=== PATIENT | female | born 1935 | race Caucasian/White ===

== ENCOUNTER 2017-10-14 07:35 | Inpatient (IN) | payer OTHER ==
[~2017-10-14] VITALS: Ht 160 cm; Wt 59.0 kg
[~2017-10-14 07:35] MED LIST: EFFEXOR XR75 MG PO; NORCO 5-325 TA1 EACH PO; PRAVASTATIN SOD10 MG PO
[2017-10-14 08:01] VITALS: BP 117/81
[2017-10-14] MEDS ORDERED: NEURONTIN 300300 M1 PO (08:02)
[2017-10-14 08:30] LABS: INFLUENZA A ANTIGEN None Detected (None Detect); INFLUENZA B ANTIGEN None Detected (None Detect)
[2017-10-14 08:46] LABS: HEMATOCRIT 43.6 % (37.0-47.0); HEMOGLOBIN 14.8 gm/dL (12.0-15.0); MCH 31.2 pg (26.0-34.0); MCV 91.7 fL (80.0-100.0); MPV 7.5 fl. (7.2-11.1); NUCLEATED RBCS 0 /100WBC; PLATELET COUNT* 340 thou/uL (150-400); RBC 4.76 mil/uL (4.20-5.00); RDW-CV 15.5 % (10.5-14.5); WBC 13.4 thou/uL (4.0-11.0)
[2017-10-14 08:58] LABS: ANION GAP 7 mmol/L (7-16); BUN 14 mg/dL (7-18); CALCIUM 9.5 mg/dL (8.5-10.1); CHLORIDE 101 mmol/L (98-107); CO2 31 mmol/L (21-32); CREATININE 0.9 mg/dL (0.6-1.3); GLUCOSE 115 mg/dL (70-99); POTASSIUM 4.1 mmol/L (3.5-5.1); SODIUM 139 mmol/L (136-145)
[2017-10-14 09:07] LABS: ALBUMIN 3.7 g/dL (3.4-5.0); ALKALINE PHOSPHATASE 90 U/L (46-116); SGOT 25 U/L (15-37); SGPT 51 U/L (30-65); TOTAL BILIRUBIN 0.4 mg/dL (<0.1-1.0); TOTAL PROTEIN 7.4 g/dL (6.4-8.2); TROPONIN-I LEVEL <0.06 ng/mL (<0.06)
[2017-10-14 09:09] LABS: BE 5.1 mmol/L (-2 to +3); PCO2 44.8 mmHg (35.0-45.0); PO2 87.8 mmHg (75.0-100.0); pH 7.443 (7.340-7.450)
[2017-10-14 09:11] LABS: ABSOLUTE EOSINOPHILS 0.1 thou/uL (0.0-0.7); ABSOLUTE LYMPHOCYTES 0.7 thou/uL (0.8-5.3); ABSOLUTE MONOCYTES 1.2 thou/uL (0.0-1.2); ABSOLUTE NEUTROPHILS 11.4 thou/uL (1.6-8.1); ATYPICAL LYMPHS 2 %; PLATELET ESTIMATE ADEQUATE
[2017-10-14 12:56] VITALS: BP 91/56
[2017-10-14 14:00] VITALS: BP 148/69
[2017-10-14] MEDS ORDERED: BUSPIRONE HCL10 MG PO (14:59)
--- NOTE | 2017-10-14 15:49 | NUR ---
PATIENT ADMITTED TO ROOM 311 VIA CART FROM ER AT 1315. PATIENT'S ASSESSMENT, HISTORY, AND VITALS CHARTED. PATIENT WITH HARSH NON PRODUCTIVE COUGH. SPUTUM SAMPLE SENT IN ER. MRSA NASAL SWAB AND URINE SENT PER ORDERS. PATIENT CONTINUES ON O2 AT 3L/NC. ORIENTED TO ROOM AND ENVIRONMENT. FALL PRECAUTIONS IN PLACE. CALL LIGHT WITHIN REACH. WILL CONTINUE WITH PLAN OF CARE.
--- NOTE | 2017-10-14 18:03 | NUR ---
PATIENT HAS BEEN A/O X 4 THIS SHIFT. HAS DENIED PAIN. HAS BEEN ON 3L/NC. PATIENT HAD COUGHING SPELL THIS AFTERNOON, HARSH NONPRODUCTIVE. SPUTUM SAMPLE SENT IN ER, MRSA AND URINE SENT ORDERED. CONTINUES ON IV FLUIDS. UP TO BSC WITH ASSIST DUE TO SHORTNESS OF AIR WITH EXERTION. PATIENT REFUSED SCDS. REMAINS ON FALL PRECAUTIONS. CALL LIGHT WITHIN REACH. WILL CONTINUE WITH PLAN OF CARE.
[2017-10-14 23:49] VITALS: BP 141/64
[2017-10-15 03:35] VITALS: BP 142/77
[2017-10-15 04:02] LABS: HEMOGLOBIN 13.5 gm/dL (12.0-15.0); MCH 30.3 pg (26.0-34.0); MCHC 32.2 g/dL (28.0-37.0); MCV 94.2 fL (80.0-100.0); MPV 7.6 fl. (7.2-11.1); RBC 4.45 mil/uL (4.20-5.00); RDW-CV 15.7 % (10.5-14.5); WBC 15.5 thou/uL (4.0-11.0)
[2017-10-15 04:21] LABS: CREATININE 0.9 mg/dL (0.6-1.3); MAGNESIUM 2.2 mg/dL (1.8-2.4); POTASSIUM 3.9 mmol/L (3.5-5.1)
--- NOTE | 2017-10-15 06:55 | NUR ---
PT SLEPT WELL AFTER RECEIVING PRN COUGH MED ORDERED LAST NIGHT. OCC EPISODE OF CHOKEY HARSH COUGH HEARD OVERNIGHT. O2 3L NC. UP WITH ASSIST TO BSC TO VOID OVERNIGHT. RAC IVF INFUSING PER PUMP, SOLUMEDROL GIVEN ORDERED. RT TX GIVEN ORDERED. AM LABS DRAWN. TYLENOL GIVEN FOR HEADACHE WITH GOOD RESULT. MRSA NEGATIVE. AO, ABLE TO USE CALL LITE AND MAKE NEEDS KNOWN. BED ALARM ON FOR SAFETY OVERNIGHT.
[2017-10-15 08:30] VITALS: BP 124/59
[2017-10-15 12:00] VITALS: BP 130/63
--- NOTE | 2017-10-15 15:32 | NUR ---
SW met with pt to complete initial assessment, introduce self, and SW role. Pt alert and oriented. Pt lives alone and was independent with ADLs and mobility. Pt did not have any DME and no history of HH. Pt says she has 2 dtrs who are out of area but she does have a niece who lives in the area. Pt also has good support in friends. Pt does not anticipate any dc needs. SW to continue to follow to assist with safe dc planning.
[2017-10-15 16:00] VITALS: BP 129/52
--- NOTE | 2017-10-15 17:03 | NUR ---
PATIENT HAS BEEN A/O X 4 THIS SHIFT. GIVEN TYLENOL FOR LOW GRADE TEMP PER PATIENT REQUEST. UP TO BSC, VOIDING WITHOUT DIFFICULTY. PATIENT'S IV SALINE LOCKED. GIVEN COUGH SYRUP THIS SHIFT PER REQUEST. CONTINUES ON BREATHING TREATMENTS. PATIENT TOLERATING DIET. HOURLY ROUNDING COMPLETED. CALL LIGHT WITHIN REACH. WILL CONTINUE WITH PLAN OF CARE.
[2017-10-16 00:14] VITALS: BP 158/87
[2017-10-16 00:21] VITALS: BP 127/66
[2017-10-16 03:52] LABS: HEMATOCRIT 36.4 % (37.0-47.0); HEMOGLOBIN 11.9 gm/dL (12.0-15.0); MCH 30.9 pg (26.0-34.0); MCHC 32.6 g/dL (28.0-37.0); MCV 94.6 fL (80.0-100.0); MPV 7.8 fl. (7.2-11.1); RBC 3.85 mil/uL (4.20-5.00); RDW-CV 16.2 % (10.5-14.5); WBC 15.9 thou/uL (4.0-11.0)
[2017-10-16 04:21] LABS: CALCIUM 9.3 mg/dL (8.5-10.1); CREATININE 0.8 mg/dL (0.6-1.3); MAGNESIUM 1.9 mg/dL (1.8-2.4)
[2017-10-16 04:55] LABS: POTASSIUM 5.4 mmol/L (3.5-5.1)
--- NOTE | 2017-10-16 06:01 | NUR ---
PT SLEPT FAIRLY WELL AFTER RECEIVING COUGH MED AT START OF SHIFT FOR HARSH CHOKEY COUGHING SPELL WITH GOOD RELIEF. O2 2L. R AC SL, SOLUMEDROL GIVEN ORDERED. AM LABS DRAWN. TO HAVE CXR TODAY. UP WITH SBA TO BR WITH O2 EXT TUBING, HE, FATIGUE. AOX4, ABLE TO USE CALL LITE AND MAKE NEEDS KNOWN. RECEIVED DULCOLAX TABS OVERNIGHT WITHOUT RESULTS AT THIS TIME.
[2017-10-16 07:45] VITALS: BP 142/75
[2017-10-16 16:52] VITALS: BP 122/62
--- NOTE | 2017-10-16 17:43 | NUR ---
PATIENT HAS BEEN A/O X 4 THIS SHIFT. HAS DENIED PAIN. CONTINUES ON O2 AT 2L/NC. PATIENT UP TO BATHROOM THIS SHIFT WITH EXTENSION O2. PATIENT AMBULATING IN ROOM. PATIENT AMBULATED FROM ROOM TO SHOWER THIS SHIFT. STILL HAS HARSH NONPRODUCTIVE COUGH, GIVEN COUGH SYRUP X 1 THIS AFTERNOON. UPDATED PATIENT'S DAUGHTER ON PATIENT'S PROGRESS. PER PATIENT'S DAUGHTER PATIENT WILL BE STAYING WITH DAUGHTER UPON DISCHARGE. PATIENT'S DAUGHTER UNABLE TO ELECTRICAL TRYOUT PERSON PATIENT UNTIL SATURDAY THOUGH. PATIENT STATING FEELING IMPROVED. HOURLY ROUNDING COMPLETED. CALL LIGHT WITHIN REACH. WILL CONTINUE WITH PLAN OF CARE.
[2017-10-16 19:31] VITALS: BP 168/77
--- NOTE | 2017-10-17 06:10 | NUR ---
ASSESSMENT COMPLETE. PT SLEPT THROUGH THE NIGHT WITHOUT ANY CONCERNS. PT DENIES PAIN AND N/V. PT IS ON 1L PER NC WITH [place] SATS. PT STILL HAS NONPRODUCTIVE, DRY COUGH, PRN COUGH MEDICATION GIVEN ONCE NEEDED. PT IS UP AD KERRY TO THE BATHROOM WITH STEADY GAIT. PT IS SLEEPING AT THIS TIME. SEE ASSESSMENT AND VITALS FOR OTHER DETAILS. CALL LIGHT WITHIN REACH, WILL CONTINUE PLAN OF CARE
[2017-10-17 09:00] VITALS: BP 143/65
[2017-10-17] MEDS ORDERED: CEFDINIR300 MG PO (09:21)
[2017-10-17] MEDS ORDERED: MUCINEX600 MG PO (09:21)
[2017-10-17] MEDS ORDERED: AZITHROMYCIN 2250 MG PO (09:21)
[2017-10-17] MEDS ORDERED: PREDNISONE 10 M10 MG PO (09:21)
--- NOTE | 2017-10-17 10:05 | NUR ---
ASSUMED CARES OF PT AT 0700. PT IN BED, BED IN LOW AND LOCKED POSITION. FALL PRECAUTIONS IN PLACE. PT A&O X4, HR TACHYCARDIC PER AUSCULTATION, LUNGS MILD WHEEZES ON EXHALATION, O2 1L NC 90%, OCCASIONAL NON PRODUCTIVE COUGH. SKIN INTACT, PERRLA, PT UP INDEPENDENTLY, STEADY GAIT. PT DENIES PAIN AT THIS TIME. GOOD APPETITE, ATE 90% BREAKFAST. PT POSSIBLY TO D/C TODAY. WILL CONTINUE TO MONITOR PT STATUS AND PROGRESS. PT PRESENTLY PROGRESSING TOWARDS GOAL.
[2017-10-17 13:55] VITALS: BP 143/65
--- NOTE | 2017-10-17 13:56 | NUR ---
Pt to dc home alone today in need of oxygen. SW arranged oxygen through [facility], BRITTANI spoke with Carol who accepted referral and to deliver to pt room prior to pt dc. No other needs expressed.
[2017-10-17 14:32] VITALS: BP 143/65
[2017-10-17 15:47] VITALS: BP 143/65
--- NOTE | 2017-10-17 16:10 | NUR ---
PT CLEARED FOR DISCHARGE HOME. IV REMOVED. PT ON 1L O2, PT REMAINS STABLE. PT UP INDEPENDENTLY. PERSONAL ITEMS PACKED. PT EDUCATED ON DISCHARGE MEDS AND ORDERS. PT SIGNED ALL DISCHARGE FORMS. EDUCATED ON STROKE SIGNS/SYMPTOMS, RISKS. PT ESCORTED VIA W/C BY NURSING STAFF WITH FRIEND TO CAR TO GO HOME. PRESCRIPTIONS AND CARE NOTES GIVEN. DISCHARGE SUCCESSFUL. SEAT BELT IN CAR SECURED ON PT. DISCHARGE COMPLETED AT 1542.
== END 2017-10-17 15:42 | disposition home or self-care (01) | DRG 871 ==
LOC: M.ERS 07:35 → M.3W 09:48 → M.TBA-ER 09:48 → M.3W 12:58
PROVIDERS: Personal Emergency Response Attendant; ADMIT Internal Medicine
DX: A41.9 Sepsis, unspecified organism (principal); J96.01 Acute respiratory failure with hypoxia; J15.9 Unspecified bacterial pneumonia; J44.1 Chronic obstructive pulmonary disease with (acute) exacerbation; J44.0 Chronic obstructive pulmonary disease with (acute) lower respiratory infection; F41.9 Anxiety disorder, unspecified; Z85.3 Personal history of malignant neoplasm of breast; Z87.891 Personal history of nicotine dependence

== ENCOUNTER 2017-12-05 09:15 | Emergency (ER) | payer OTHER ==
[~2017-12-05] VITALS: Ht 160 cm; Wt 61.2 kg
[~2017-12-05 09:15] MED LIST changes: +AZITHROMYCIN 2250 MG PO; +BUSPIRONE HCL10 MG PO; +CEFDINIR300 MG PO; +MUCINEX600 MG PO; +NEURONTIN 300300 M1 PO; +PREDNISONE 10 M10 MG PO
[2017-12-05 10:08] VITALS: BP 137/53
== END 2017-12-05 10:21 | disposition home or self-care (01) ==
LOC: M.ERS 09:15
DX: S51.811A Laceration without foreign body of right forearm, initial encounter (principal); F41.9 Anxiety disorder, unspecified; J44.9 Chronic obstructive pulmonary disease, unspecified; Z85.3 Personal history of malignant neoplasm of breast; Z90.49 Acquired absence of other specified parts of digestive tract; W01.198A Fall on same level from slipping, tripping and stumbling with subsequent striking against other object, initial encounter; Y93.89 Activity, other specified; Y92.091 Bathroom in other non-institutional residence as the place of occurrence of the external cause; Y99.8 Other external cause status

== ENCOUNTER 2021-07-17 10:26 | Inpatient (IN) | payer MEDICARE ==
[~2021-07-17] VITALS: Ht 160 cm; Wt 65.8 kg
[2021-07-17 10:33] VITALS: BP 138/78
[2021-07-17] MEDS ORDERED: TRELEGY ELLIPT1 EACH (10:59)
[2021-07-17] MEDS ORDERED: OMEPRAZOLE 20 M20 M1 PO (10:59)
[2021-07-17] MEDS ORDERED: PROAIR HFA8.5 GM INH (10:59)
[2021-07-17] MEDS ORDERED: OXYBUTYNIN 5 MG5 M2 PO (11:00)
[2021-07-17] MEDS ORDERED: VIACTIV 650 MG1 EACH PO (11:00)
[2021-07-17] MEDS ORDERED: MELATONIN10 M3 PO (11:00)
[2021-07-17] MEDS ORDERED: CENTRUM SILVER1 EAC5 PO (11:00)
[2021-07-17 11:22] LABS: ABSOLUTE BASOPHILS 0.1 thou/uL (0.0-0.2); ABSOLUTE EOSINOPHILS 0.3 thou/uL (0.0-0.7); ABSOLUTE LYMPHOCYTES 1.2 thou/uL (0.8-5.3); ABSOLUTE MONOCYTES 2.2 thou/uL (0.0-1.2); ABSOLUTE NEUTROPHILS 10.5 thou/uL (1.6-8.1); BASOPHILS 0.7 %; EOSINOPHILS 1.9 %; HEMATOCRIT 40.4 % (37.0-47.0); HEMOGLOBIN 13.6 gm/dL (12.0-15.0); LYMPHOCYTES 8.6 %; MCH 32.1 pg (26.0-34.0); MCHC 33.7 g/dL (28.0-37.0); MCV 95.4 fL (80.0-100.0); MONOCYTES 15.4 %; MPV 8.1 fl. (7.2-11.1); NUCLEATED RBCS 0 /100WBC; PLATELET COUNT* 278 thou/uL (150-400); POLYS 73.4 %; RBC 4.23 mil/uL (4.20-5.00); WBC 14.3 thou/uL (4.0-11.0)
[2021-07-17 11:27] LABS: INFLUENZA A ANTIGEN Negative (Negative); INFLUENZA B ANTIGEN Negative (Negative)
[2021-07-17 11:32] LABS: CALCIUM 9.6 mg/dL (8.5-10.1); CREATININE 0.8 mg/dL (0.6-1.3); POTASSIUM 4.5 mmol/L (3.5-5.1)
[2021-07-17 11:42] LABS: ALBUMIN 3.8 g/dL (3.4-5.0); TOTAL BILIRUBIN 0.5 mg/dL (<0.1-1.0); TOTAL PROTEIN 7.9 g/dL (6.4-8.2)
[2021-07-17 12:30] LABS: BE -3.1 mmol/L (-2 to +3); PCO2 VENOUS 63.5 mmHg (41.0-51.0); PO2 VENOUS 31.7 mmHg (35.0-45.0)
--- NOTE | 2021-07-17 12:37 | EKG ---
[place] [address] ELECTROCARDIOGRAM REPORT Name: JEFFREY BLACKWELL Room: [place] [address] ADM IN [facility]#: [id number] Admission: 07/17/21 Attend Phys: Arik Velasco Discharge: Date of : 39 Date of Service: 07/17/21 1103 Report #: [id number] THIS REPORT FOR: //name// [facility] ED Test Date: 2021-07-17 Test Time: 11:03:04 Pat Name: JEFFREY BLACKWELL Department: Room: [facility] Gender: F Rooms Director: ADRIANA : [id number] Requested By: Winnie Recinos Order Number: [id number] MD: Steve Gagnon Measurements Intervals [place] Rate: 90 P: 62 [place]: 154 QRS: 11 QRSD: 99 T: 47 QT: 360 QTc: 441 Interpretive Statements Sinus rhythm No previous ECG available for comparison Electronically Signed On 07-17-2021 12:37:13 SOFTWARE QUALITY ASSURANCE ANALYST by Steve Gagnon [email or web address] <ELECTRONICALLY SIGNED> By: Steve Gagnon MD, [facility] 07/17/21 1237 1103 1103 Steve Gagnon MD, [facility] /EPI
--- NOTE | 2021-07-17 17:21 | NUR ---
PT GIVEN DINNER.
[2021-07-17 17:53] VITALS: BP 126/72
[2021-07-17 18:30] VITALS: BP 148/66
--- NOTE | 2021-07-17 20:01 | NUR ---
PT TRANSFERRED FROM AT APPROX 1810. PT IS PLEASANTLY A&OX4. PT IS UP AD KERRY. PT IS ON 2L OF O2 PER NC. MEDICATIONS RECONCILED. PT VERBALIZES UNDERSTANDING OF SAFETY MEASURES.ORIENTED PT TO ROOM. REPORT GIVEN TO ONCOMING NURSE.
[2021-07-17 20:29] VITALS: BP 131/62
[2021-07-18 01:11] VITALS: BP 138/60
[2021-07-18 04:49] VITALS: BP 126/68
--- NOTE | 2021-07-18 06:50 | NUR ---
PT IS ABLE TO COMMUNICATE HER NEEDS TO STAFF EFFECTIVELY. SHE HAS DENIED THE NEED FOR PAIN MEDICATION UP TO THIS TIME. PT IS UP WITH SBA; BED ALARM ON SHE HAS HAD RECENT FALLS AT HOME.
[2021-07-18 07:50] VITALS: BP 118/46
--- NOTE | 2021-07-18 10:34 | NUR ---
CM ASSESSMENT: PT A&O, AND INDEPENDENT WITH ADL'S. PT RESIDES AT HOME ALONE. PT USES 0 DME. PT HAS 0 HX OF HH OR SNF. PT INFORMS THAT SHE IS CURRENT WITH OUTPATIENT PT/OT AT [facility]. CM WILL REMAIN AVAILABLE TO ASSIST AND FOLLOW NEEDED.
[2021-07-18 12:00] VITALS: BP 120/54
[2021-07-18 16:00] VITALS: BP 133/53
--- NOTE | 2021-07-18 18:30 | NUR ---
PT REMAINS ON 2L NC-ATTEMPTED TO TITRATE TO ROOM AIR AND SAT DROPPED IN THE 80'S-PT PLACED BACK ON 2L NC SAT LOW 90'S. TRACING ST ON THE SENIOR TREASURY CONSULTANT-RATE IN THE 110'S. PT AMBULATED IN HALLWAY WITH NURSING THIS AFTERNOON-TOLERATED WELL. AM ASSESSMENT CHARTED. MEDS PER OCT. CALL LIGHT WITHIN REACH. HOURLY ROUNDING OBSERVED. WILL CONTINUE PLAN OF CARE.
[2021-07-18 20:09] VITALS: BP 154/64
[2021-07-19 00:20] VITALS: BP 144/60
[2021-07-19 05:21] LABS: HEMATOCRIT 35.6 % (37.0-47.0); HEMOGLOBIN 11.8 gm/dL (12.0-15.0); MCH 31.8 pg (26.0-34.0); MCHC 33.2 g/dL (28.0-37.0); MCV 95.6 fL (80.0-100.0); MPV 8.1 fl. (7.2-11.1); NUCLEATED RBCS 0 /100WBC; PLATELET COUNT* 261 thou/uL (150-400); RBC 3.73 mil/uL (4.20-5.00); WBC 10.1 thou/uL (4.0-11.0)
[2021-07-19 05:31] VITALS: BP 138/72
[2021-07-19 05:35] LABS: CALCIUM 9.3 mg/dL (8.5-10.1); CREATININE 0.7 mg/dL (0.6-1.3); POTASSIUM 4.3 mmol/L (3.5-5.1)
--- NOTE | 2021-07-19 05:42 | NUR ---
PT IS ABLE TO COMMUNICATE HER NEEDS TO STAFF EFFECTIVELY. CURRENT PAIN MEDICATION REGIMEN HAS BEEN ADEQUATE FOR CONTROLLING HER PAIN UP TO THIS TIME. PT CONTINUES TO NEED O2 WHILE HERE, BUT SAYS SHE DID NOT WEAR O2 AT HOME PRIOR TO THIS HOSPITAL VISIT. POSSIBLE DISCHARGE TODAY.
[2021-07-19 07:05] LABS: ABSOLUTE LYMPHOCYTES 0.9 thou/uL (0.8-5.3); ABSOLUTE MONOCYTES 0.2 thou/uL (0.0-1.2)
[2021-07-19 07:40] VITALS: BP 102/63
[2021-07-19] MEDS ORDERED: VITAMIN C1000 MG PO (11:47)
[2021-07-19] MEDS ORDERED: AZITHROMYCIN 2250 MG PO (11:47)
[2021-07-19] MEDS ORDERED: VITAMIN D325 MC2 PO (11:47)
[2021-07-19] MEDS ORDERED: CEFDINIR300 MG PO (11:47)
[2021-07-19 12:10] VITALS: BP 102/63
[2021-07-19 12:27] VITALS: BP 137/56
[2021-07-19 16:04] VITALS: BP 102/63
--- NOTE | 2021-07-19 16:31 | NUR ---
PLAN FOR THE PT TO D/C TODAY HOME WITH SELF-CARE, AND HOME OXYGEN @ 2L AT REST AND 3L O2 WITH ACTIVITY. PT CHOSE [facility] FOR HOME O2. HOME O2 APPROVED. PT REQUEST INOGEN. CM TO ASSIST WITH OBTAINING INOGEN ORDER FROM PHYSICIAN. CM WILL REMAIN AVAILABLE TO ASSIST AND FOLLOW NEEDED.
--- NOTE | 2021-07-19 17:09 | NUR ---
PT HAD RT SAT AND EXERCISE-REQUIRES 2L AT REST AND 3L WITH ACTIVITY. 02 ORDERED AND DELIVERED. DISCHARGE ORDERS RECEIVED. DISCHARGE INSTRUCTIONS, CARE NOTES, E SCRIPTS AND FOLLOW UP APPTS GIVEN TO PT. PT COMMUNICATES UNDERSTANDING OF DISCHARGE TEACHING. IV AND TIME CLOCK MECHANIC REMOVED. PT DISCHARGED WITH ALL BELONGINGS AND PAPERWORK VIA WHEELCHAIR WITH NURSING STAFF TO FAMILY OWN PERSONAL VEHICLE.
== END 2021-07-19 17:09 | disposition home or self-care (01) | DRG 193 ==
LOC: M.ERS 10:26 → M.2W 11:46 → M.TBA-ER 11:46 → M.2W 18:18
PROVIDERS: Internal Medicine; Nurse Practitioner Family; ADMIT Internal Medicine; ATTEND Internal Medicine
DX: J15.9 Unspecified bacterial pneumonia (principal); J96.01 Acute respiratory failure with hypoxia; R65.10 Systemic inflammatory response syndrome (SIRS) of non-infectious origin without acute organ dysfunction; J44.0 Chronic obstructive pulmonary disease with (acute) lower respiratory infection; J44.1 Chronic obstructive pulmonary disease with (acute) exacerbation; E87.2 Acidosis; Z87.891 Personal history of nicotine dependence; F41.9 Anxiety disorder, unspecified; Z90.49 Acquired absence of other specified parts of digestive tract; K57.30 Diverticulosis of large intestine without perforation or abscess without bleeding; Z20.822 Contact with and (suspected) exposure to COVID-19

== ENCOUNTER 2021-10-05 09:47 | Emergency (ER) | payer MEDICARE ==
[~2021-10-05] VITALS: Ht 160 cm; Wt 63.5 kg
[~2021-10-05 09:47] MED LIST changes: +CENTRUM SILVER1 EAC5 PO; +MELATONIN10 M3 PO; +OMEPRAZOLE 20 M20 M1 PO; +OXYBUTYNIN 5 MG5 M2 PO; +PROAIR HFA8.5 GM INH; +TRELEGY ELLIPT1 EACH; +VIACTIV 650 MG1 EACH PO; +VITAMIN C1000 MG PO; +VITAMIN D325 MC2 PO
[2021-10-05 11:54] VITALS: BP 130/73
== END 2021-10-05 11:54 | disposition home or self-care (01) ==
LOC: M.ERS 09:47
DX: M25.532 Pain in left wrist (principal); M19.90 Unspecified osteoarthritis, unspecified site; F41.9 Anxiety disorder, unspecified; J44.9 Chronic obstructive pulmonary disease, unspecified; Z90.89 Acquired absence of other organs; Z98.51 Tubal ligation status; Z90.710 Acquired absence of both cervix and uterus; Z85.3 Personal history of malignant neoplasm of breast; Z90.49 Acquired absence of other specified parts of digestive tract; Z79.899 Other long term (current) drug therapy; Z79.2 Long term (current) use of antibiotics; Z87.891 Personal history of nicotine dependence; W01.10XA Fall on same level from slipping, tripping and stumbling with subsequent striking against unspecified object, initial encounter; Y93.89 Activity, other specified; Y92.89 Other specified places as the place of occurrence of the external cause; Y99.8 Other external cause status